=== PATIENT | male | born 1955 | race Caucasian/White ===

== ENCOUNTER → 2019-01-23 07:00 | Day surgery (SDC) | payer OTHER ==
[~2019-01-23 07:00] MED LIST: Aspirin 81 mg CHEW TAB* 81 MG TAB.CHEW ONE; Iohexol 350 (CONTRAST) 200 ML MDV IV ONE; Lidocaine 1% INJ* 10 MG/ML 30 ML SDV ONE; Midazolam* 1 MG/ML 5 ML VIAL (5 MG) ONE; fentaNYL* 50 MCG/ML 2 ML VIAL (100 MCG VIAL) ONE
[2019-01-23 08:14] LABS: ABS Eosinophils 0.1 10^3/ul (0-0.6); ABS Lymphocytes 1.1 10^3/ul (1.0-4.8); ABS Monocytes 0.5 10^3/ul (0-0.8); ABS Neutrophils 3.8 10^3/ul (1.5-7.7); Hematocrit 40 % (42-52); Hemoglobin 13.3 g/dL (14.0-18.0); Mean Corpuscular HGB Conc 34 g/dL (31-36); Mean Corpuscular Hemoglobin 28 pg (27-31); Mean Corpuscular Volume 83 fL (80-94); Nucleated Red Blood Cells % 0.1; Platelet Count 276 10^3/uL (150-450); Red Blood Count 4.75 10^6 /uL (4.18-5.48); Red Cell Distribution Width 16 % (10.5-15); White Blood Count 5.5 10^3/uL (3.5-10.8)
[2019-01-23 08:17] LABS: Activated Partial Thrombo Time 28.1 seconds (26.0-36.3); INR 0.91 (0.82-1.09)
[2019-01-23 08:31] LABS: BUN/Creatinine Ratio 12.8 (8-20); EGFR African American 109.4 (>60); EGFR Non-African American 90.4 (>60); Potassium 3.3 mmol/L (3.5-5.0)
[2019-01-23 10:57] VITALS: BP 113/65
== END | disposition home or self-care (01) ==
LOC: CHICATH 07:00 → EDSTATUS 08:00
PROVIDERS: ATTEND Radiology Diagnostic Radiology
DX: Z86.711 Personal history of pulmonary embolism (principal); Z45.89 Encounter for adjustment and management of other implanted devices; Z79.82 Long term (current) use of aspirin; E11.9 Type 2 diabetes mellitus without complications; Z79.84 Long term (current) use of oral hypoglycemic drugs; I10 Essential (primary) hypertension; E78.5 Hyperlipidemia, unspecified
CPT/HCPCS: 36415; 37193; 75825; 76937; 80048; 85025; 85610; 85730; 88300; 99156; 99157; A9270-GY; C1769; C1887; J1644; J2250; J3010